=== PATIENT | male | born 1990 | race Caucasian/White ===

== ENCOUNTER 2017-03-21 22:23 | Emergency (ER) | payer MEDICAID ==
--- NOTE | ~2017-03-21 | ER ---
ADMIT: 03/21/2017 RM/LOC: ER [facility] MR#: [id number] [address] [id number] [address] [place] [address] Emergency Room Report SEX: M AGE: 26 : 1990 DATE: 03/21/2017 CHIEF COMPLAINT: Back pain. HISTORY OF PRESENT ILLNESS: The patient is a 26-year-old male, comes in complaining of back pain. It is going on for about a day. It is in his right flank with no radiation. He denies any injuries or trauma and does not normally have chronic back pain issues. He denies any pain with urination, problems with bowel movements, and no radiation of pain down his leg. No sensory or motor problems with his lower extremities. PHYSICAL EXAMINATION: Unremarkable other than what appears to be some increased pain with movement. His belly was soft. Nontender. My plan was to get a urinalysis on the patient. Give him a shot of Toradol and some Valium. After I told the patient the plan and stepped out, he apparently decided to walk out of the ER. There has not been any indication that he was not happy with the service or did not want to stay around, but when asked further, he said he did not want to give a urine sample. I believe it was reasonable to check his urine to see he did not have any red blood cells in his urine for the possibility of renal stone and that was needed for my workup. The patient decided to leave AMA. Mir Mcgovern MD/ lora JOB #: [id number] CC: Mir Mcgovern MD, Attending Physician Deven Snyder MD, Family Physician
== END 2017-03-21 23:37 | disposition left against medical advice (07) ==
LOC: ER 22:23
DX: M54.5 Low back pain (principal); F17.210 Nicotine dependence, cigarettes, uncomplicated; Z87.81 Personal history of (healed) traumatic fracture; Z90.89 Acquired absence of other organs